=== PATIENT | female | born 1975 | race Caucasian/White ===

== ENCOUNTER 2017-01-02 22:32 | Emergency (ER) | payer OTHER ==
[~2017-01-02] VITALS: Ht 175.3 cm; Wt 112.4 kg
[~2017-01-02 22:32] MED LIST: ATIVAN0.5 M1 PO; BREO ELLIPTA 11 EAC1 INH; CELEXA40 M2 PO; FLEXERIL10 MG PO; HYCET ELIXIR PO; LAMICTAL200 M2 PO; PROAIR HFA8.5 GM IH; PROAIR HFA8.5 GM INH; QVAR8.7 G1 INH; ZOFRAN4 M2 PO
[2017-01-03 00:16] LABS: BASO % 0.4 % (0-2); EOS % 4.2 % (0-7); EOSINOPHIL ABSOLUTE COUNT 0.3 tho/cmm (0.0-0.7); HCT-HEMATOCRIT 36.8 % (34.0-49.0); HGB-HEMOGLOBIN 12.4 gm/dl (12.0-15.5); IMMATURE GRANULOCYTES ABSOLUTE 0.01 tho/cmm (0-0.03); IMMATURE GRANULOCYTES PERCENT 0.1 % (0-0.3); LYMPH % 14.1 % (20-45); LYMPH ABSOLUTE COUNT 1.1 tho/cmm (0.8-4.5); MCH (MEAN CORPUSCULAR HGB) 28.4 pg (28.0-32.0); MCHC MEAN CORPUSCULAR HGB CONC 33.7 % (32.0-36.0); MCV (MEAN CELL VOLUME) 84.4 fl (82.0-96.0); MEAN PLATELET VOLUME 9.5 cmc (9.4-12.4); MONO % 10.1 % (0-12); MONOCYTE ABSOLUTE COUNT 0.8 tho/cmm (0.0-1.2); NEUTROPHIL ABSOLUTE COUNT 5.4 tho/cmm (1.6-8.0); NEUTROPHIL-AUTOMATED 5.4 tho/cmm (1.6-8.0); NEUTROPHILS % 71.1 % (40-80); PLATELET COUNT 542 tho/cmm (150-450); RED BLOOD COUNT 4.36 mil/cmm (4.00-5.20); RED CELL DISTRIBUTION WIDTH 14.3 % (12.4-16.4); WHITE BLOOD COUNT 7.7 tho/cmm (4.0-10.0)
[2017-01-03] MEDS ORDERED: NORCO 5-325 TA1 EACH PO (00:17)
[2017-01-03 00:27] LABS: PREGNANCY-SERUM NEGATIVE (NEGATIVE)
[2017-01-03 00:30] LABS: ALB/GLOB RATIO 0.7 (0.8-2.0); ALKALINE PHOSPHATASE 54 U/L (33-138); ALT/SGPT 16 U/L (12-78); BILIRUBIN,TOTAL 0.6 mg/dl (0-1.5); BLOOD UREA NITROGEN 15 mg/dl (6-24); CALCIUM 8.4 mg/dl (8.5-10.5); CARBON DIOXIDE-VENOUS 26 mmol/L (22-32); CHLORIDE 104 mmol/l (96-110); CREATININE 0.64 mg/dl (0.50-1.10); GLUCOSE 87 mg/dL (70-110); LIPASE 82 U/L (73-393); SODIUM 135 mmol/L (135-145); eGFR VALUE FOR BLACK >90 mL/Min
[2017-01-03 00:31] LABS: ANION GAP 9 mmol/L (0-20); AST/SGOT 15 U/L (10-40); POTASSIUM 3.7 mmol/L (3.7-5.1)
[2017-01-03] MEDS ORDERED: CLINDAMYCIN HC300 M2 PO (03:23)
[2017-01-04] MEDS ORDERED: CLEOCIN HCL300 M1 PO (14:00)
[2017-01-04] MEDS ORDERED: BREO INH (14:01)
== END 2017-01-03 03:58 ==
LOC: EDMED 22:32
PROVIDERS: Emergency Medicine
DX: L02.211 Cutaneous abscess of abdominal wall (principal); J45.909 Unspecified asthma, uncomplicated; Z98.890 Other specified postprocedural states; Z88.2 Allergy status to sulfonamides; Z88.8 Allergy status to other drugs, medicaments and biological substances
CPT/HCPCS: J1170; J2405; J7030; Q9967